=== PATIENT | female | born 1970 | race Caucasian/White ===

== ENCOUNTER 2017-09-29 12:06 | Emergency (ER) | payer BC, OTHER ==
[~2017-09-29] VITALS: Ht 154.9 cm; Wt 64.7 kg
[2017-09-29 12:07] VITALS: TEMP 37; Ht 154.9 cm; Wt 64.7 kg
[2017-09-29] MEDS ORDERED: AMOX250C3 PO (12:38)
[2017-09-29] MEDS ORDERED: CALC-51 PO (12:38)
[2017-09-29] MEDS ORDERED: MULT1TAB22 PO (12:38)
[2017-09-29] MEDS ORDERED: LACTATED RINGER'S 1000ML 1,000 ML IV STA ×2 (12:58→14:32)
--- NOTE | 2017-09-29 13:07 | EMERGENCY ROOM VISIT NOTE ---
History Report prepared by Nehal: Leticia Gray Under the Supervision of: Dr. Jorgito Rehman M.D. First contact with patient: 12:42 Chief Complaint: RECTAL BLEEDING Stated Complaint: WHEN HAVING BM THERE ARE BLOOD/BLOOD CLOTS History of Present Illness The patient is a 46 year old white female with no past medical history who presents to the ED with a cc of intermittent rectal bleeding beginning Thursday. Positive cough. Negative urinary symptoms, fever, chills. The patient states that on Thursday she was started on antibiotics for her recent cold by her PCP. She states that on Thursday morning she noticed what she thought to be blood in her stool, but attributed the color to the popsicles she had. The patient states that the color of her stool resolved, but states that today it has worsened. She states that she had three bowel movements today, noting that the first was dark in color, the second she noticed red blood clots, and the third made the toilet water red. The patient denies being on any anticoagulants. She denies any recent travel, or trauma. The patient denies any alcohol or tobacco use. Source of History: patient Onset: Thursday Position: other (rectal) Quality: other (bleeding) Timing: intermittent Associated Symptoms: + cough, No fevers, No chills, No urinary symptoms Note: Associated Symptoms: dark blood, passing blood clots Review of Systems See HPI for pertinent positives and negatives. A total of ten systems were reviewed and were otherwise negative. Past Medical & Surgical Medical Problems: (1) Asthma (2) Bronchitis (3) Kidney stones Surgical Problems: (1) Status post endometrial ablation Family History Alzheimer's disease Cancer Diabetes mellitus Heart disease Hypertension Social History Smoking Status: Never Smoker Smokeless Tobacco Use: No Alcohol Use: none Marital Status: Housing Status: lives with family Occupation Status: unemployed Current/Historical Medications Scheduled Amoxicillin (Amoxil), Unknown Dose PO BID Calcium Carbonate-Vitamin D (Calcium), 1 TAB PO DAILY Multiple Vitamins W/ Minerals (One Daily For Women), 1 TAB PO DAILY Allergies Coded Allergies: No Known Allergies (Unverified , 09/29/17) Physical Exam Vital Signs Date Time Temp Pulse Resp B/P (MAP) Pulse Ox O2 Delivery O2 Flow Rate FiO2 09/29/17 15:38 96 20 130/86 99 09/29/17 14:33 113 18 133/79 95 Room Air 09/29/17 12:07 37.0 128 20 137/90 99 Room Air Physical Exam GENERAL: Awake, alert, well-appearing, NAD HENT: Normocephalic, atraumatic. EYES: Normal conjunctiva. Sclera non-icteric. NECK: Supple. No nuchal rigidity. FROM. RESPIRATORY: CTAB, no rhonchi, wheezing, crackles CARDIAC: Tachycardic rate, regular rhythm, no MRG ABDOMEN: Soft, NTND, BS+ MSK: No chest wall TTP, no LE edema NEURO: GCS 15, CN 2-12 intact, moves all 4s on command SKIN: No rash or jaundice noted. Medical Decision & Procedures ER Provider Diagnostic Interpretation: X-ray: Per my interpretation, radiologist review. CHEST ONE VIEW PORTABLE CLINICAL HISTORY: Pain, radiating to the abdomen. COMPARISON STUDY: No previous studies for comparison. FINDINGS: The cardiac and mediastinal contours are normal. There is no evidence of focal pulmonary consolidation. There is no evidence of failure. No pleural effusions are visualized.[ No free intraperitoneal air is visualized. IMPRESSION: No active disease in the chest. Electronically signed by: Tuan Stweart M.D. 09/29/2017 1:27 PM Dictated Date/Time: 09/29/2017 1:27 PM Laboratory Results 09/29/17 13:12 Red Blood Count 3.89, Mean Corpuscular Volume 92.0, Mean Corpuscular Hemoglobin 30.8, Mean Corpuscular Hemoglobin Concent 33.5, Mean Platelet Volume 9.9, Neutrophils (%) (Auto) 80.3, Lymphocytes (%) (Auto) 13.8, Monocytes (%) (Auto) 4.7, Eosinophils (%) (Auto) 0.6, Basophils (%) (Auto) 0.2, Neutrophils # (Auto) 12.99, Lymphocytes # (Auto) 2.23, Monocytes # (Auto) 0.76, Eosinophils # (Auto) 0.09, Basophils # (Auto) 0.03 09/29/17 13:12 Test 09/29/17 13:05 09/29/17 13:12 Urine Color YELLOW Urine Appearance CLEAR (CLEAR) Urine pH 7.0 (4.5-7.5) Urine Specific [place] 1.010 (1.000-1.030) Urine Protein NEG (NEG) Urine Glucose (UA) NEG (NEG) Urine Ketones 1+ (NEG) Urine Occult Blood NEG (NEG) Urine Nitrite NEG (NEG) Urine Bilirubin NEG (NEG) Urine Urobilinogen NEG (NEG) Urine Leukocyte Esterase NEG (NEG) White Blood Count 16.17 K/uL (4.8-10.8) Red Blood Count 3.89 M/uL (4.2-5.4) Hemoglobin 12.0 g/dL (12.0-16.0) Hematocrit 35.8 % (37-47) Mean Corpuscular Volume 92.0 fL (80-100) Mean Corpuscular Hemoglobin 30.8 pg (25-34) Mean Corpuscular Hemoglobin Concent 33.5 g/dl (32-36) Platelet Count 387 K/uL (130-400) Mean Platelet Volume 9.9 fL (7.4-10.4) Neutrophils (%) (Auto) 80.3 % Lymphocytes (%) (Auto) 13.8 % Monocytes (%) (Auto) 4.7 % Eosinophils (%) (Auto) 0.6 % Basophils (%) (Auto) 0.2 % Neutrophils # (Auto) 12.99 K/uL (1.4-6.5) Lymphocytes # (Auto) 2.23 K/uL (1.2-3.4) Monocytes # (Auto) 0.76 K/uL (0.11-0.59) Eosinophils # (Auto) 0.09 K/uL (0-0.5) Basophils # (Auto) 0.03 K/uL (0-0.2) RDW Standard Deviation 43.2 fL (36.4-46.3) RDW Coefficient of Variation 12.8 % (11.5-14.5) Immature Granulocyte % (Auto) 0.4 % Immature Granulocyte # (Auto) 0.07 K/uL (0.00-0.02) Prothrombin Time 10.8 SECONDS (9.0-12.0) Prothromb Time International Ratio 1.0 (0.9-1.1) Activated Partial Thromboplast Time 31.5 SECONDS (21.0-31.0) Partial Thromboplastin Ratio 1.2 Anion Gap 11.0 mmol/L (3-11) Est Creatinine Clear Calc Drug Dose 80.7 ml/min Estimated GFR () 110.8 Estimated GFR (Non- 95.6 BUN/Creatinine Ratio 11.6 (10-20) Calcium Level 9.4 mg/dl (8.5-10.1) Total Bilirubin 0.3 mg/dl (0.2-1) Direct Bilirubin < 0.1 mg/dl (0-0.2) Aspartate Amino Transf (AST/SGOT) 20 U/L (15-37) Alanine Aminotransferase (ALT/SGPT) 65 U/L (12-78) Alkaline Phosphatase 159 U/L (45-117) Total Protein 9.0 gm/dl (6.4-8.2) Albumin 3.5 gm/dl (3.4-5.0) Lipase 138 U/L (73-393) Laboratory results reviewed by me Medications Administered Medications (Trade) Dose Ordered Sig/Klarissa Route Start Time Stop Time Status Last Admin Dose Admin Lactated Ringer's 1,000 ml @ 999 mls/hr Q1H1M STAT IV 09/29/17 12:58 09/29/17 13:58 DC 09/29/17 13:20 999 MLS/HR Lactated Ringer's 1,000 ml @ 999 mls/hr Q1H1M STAT IV 09/29/17 14:32 09/29/17 15:32 DC 09/29/17 14:39 999 MLS/HR ECG Indication: tachycardia Rate (beats per minute): 116 Rhythm: sinus tachycardia Findings: no ectopy, other (normal intervals, normal axis, no STS or TWI) ED Course 1251: The patient was evaluated in room A9B. A complete history and physical exam was performed. 1258: Ordered Lactated Ringer's 1000 ml @ 999 mls/hr IV. 1432: Ordered Lactated Ringer's 1000 ml @ 999 mls/hr IV. Medical Decision Triage Nursing notes reviewed. The patient's presentation and history were concerning for coagulopathy, GI bleed, hemorrhoids, IBD, ABM. The patient is a 46 year old white female with no past medical history who presents to the ED with a cc of intermittent rectal bleeding beginning Thursday. Patient was seen and evaluated the bedside. Patient did recently start amoxicillin on Thursday for some URI type symptoms. Patient started experiencing some of the blood in her stool on Thursday. Patient states that this went away but then returned Thursday. Patient does not take any blood thinning medications. She has no history of liver kidney dysfunction. Patient is fairly well-appearing. Patient does have some mild tachycardia. Patient's blood work showed that she had fairly normal blood counts. She had normal hemoglobin and platelets. Patient had normal coags. Patient did have some bright red blood per rectum on rectal exam. Patient heart rate improved with 2 L of fluids. Upon reassessment of the patient the patient was looking and feeling very well. I believe that her tachycardia was more likely related to her URI infectious symptoms as her tachycardia resolved with fluids. The more common the patient has fairly normal blood counts. She has no prior history of disease and is a very well-appearing and healthy relatively young female. Given this I did ask the counseling case manager did ask her to make an appointment with the warehouse associate driver. Patient was told that she has persistent blood in her bowel movements she should return either to the emergency department or at least follow-up with the warehouse associate driver. Patient was told to avoid things like alcohol and caffeine. Patient states she does take a lot of caffeinated beverages should avoid those and practice liberal hydration. I did discuss the amoxicillin use with the pharmacist. There were 2 case reports of some colitis related to the amoxicillin. Given that the patient's URI-type symptoms were not tested and she had no positive strep test and these were just use for symptomatic reason she was told to stop taking the amoxicillin. I discussed the management and plan with the patient. Patient is amenable to outpatient follow-up and treatment with strict return precautions. Patient was given strict follow-up, discharge, and return precautions. All questions were answered. Patient was deemed suitable for outpatient follow-up at this time. Patient agreed with the plan of care and was safely discharged home. Medication Reconcilliation Current Medication List: was personally reviewed by me Impression Primary Impression: Rectal bleeding Additional Impressions: URI (upper respiratory infection) Dehydration Scribe Attestation The scribe's documentation has been prepared under my direction and personally reviewed by me in its entirety. I confirm that the note above accurately reflects all work, treatment, procedures, and medical decision making performed by me. Departure Information Dispostion Home / Self-Care Referrals Jennifer Vallejo M.D. (PCP) Patient Instructions Bleeding Rectal, Dehydration, ED Upper Resp Infec No Abx Tx, My [facility] Additional Instructions Please return to the emergency department if you have worsening or recurrent symptoms not amenable to at-home treatment. Please call for a follow-up appointment with her primary care physician. Please take your medications as prescribed. If you have other concerns and/or complaints please feel free to also call your primary care physician's office or return the ED for further evaluation, management, and treatment. Maintain liberal hydration. Avoid alcohol or caffeine. Please follow up with your PCP by the end of the week. If you are lightheaded, have a rapid heart rate , pass out, have worsening rectal bleeding or persistent rectal bleeding please call your PCP and/or return to the EC. Please stop taking your amoxicillin. Try over the counter remedies for your congestion. You may take 600 mg Ibuprofen every 6 hours as needed for pain with food for no more than 2 consecutive days. You may take tylenol 1000 mg every 6 hours as needed for pain. You may take motrin and tylenol separately or at the same time. Take your medications as prescribed. If taking an antibiotic consider taking a probiotic and/or eating yogurt, but at the least, please take with food as it can cause upset stomach. If culture results are not available at discharge, if they are positive for concern of infection, you will be informed of the results as soon as they are available. If you were seen between 11pm and 7AM all radiology reads will be re-read by our in house staff. If any major discrepancies are discovered, you will be notified. You have been examined and treated today on an emergency basis only. This is not a substitute for, or an effort to provide, complete comprehensive medical care. It is impossible to recognize and treat all injuries or illnesses in a single emergency department visit. It is therefore important that you follow up closely with [facility], your PCP, and/or your specialist(s). Call as soon as possible for an appointment. Thank you for your time and consideration. I look forward to speaking with you again soon. Please don't hesitate to call us if you have any questions. Problem Qualifiers Additional Impressions: URI (upper respiratory infection) URI type: unspecified URI Qualified Codes: J06.9 - Acute upper respiratory infection, unspecified
[2017-09-29 13:27] LABS: BASO % 0.2 %; BASO ABS # 0.03 K/uL (0-0.2); COMPLETE YES; EOS % 0.6 %; HEMATOCRIT 35.8 % (37-47); IG% 0.4 %; LYMPH % 13.8 %; LYMPH ABS # 2.23 K/uL (1.2-3.4); MEAN CORPUSCULAR HEMOGLOBIN 30.8 pg (25-34); MEAN CORPUSCULAR HGB CONC 33.5 g/dl (32-36); MEAN PLATELET VOLUME 9.9 fL (7.4-10.4); MONO % 4.7 %; NEUT % 80.3 %; PLATELET COUNT 387 K/uL (130-400); RED BLOOD COUNT 3.89 M/uL (4.2-5.4); WHITE BLOOD COUNT 16.17 K/uL (4.8-10.8)
[2017-09-29 13:27] LABS: URINE APPEARANCE CLEAR (CLEAR); URINE BILIRUBIN NEG (NEG); URINE COLOR YELLOW; URINE NITRITE NEG (NEG); UROBILINOGEN NEG (NEG); ZZUR CULT IF INDIC CLEAN CATCH NO
--- NOTE | 2017-09-29 13:29 | DIAGNOSTIC IMAGING REPORT ---
CHEST ONE VIEW PORTABLE CLINICAL HISTORY: Pain, radiating to the abdomen. COMPARISON STUDY: No previous studies for comparison. FINDINGS: The cardiac and mediastinal contours are normal. There is no evidence of focal pulmonary consolidation. There is no evidence of failure. No pleural effusions are visualized.[ No free intraperitoneal air is visualized. IMPRESSION: No active disease in the chest. Electronically signed by: Tuan Stewart M.D. 09/29/2017 1:27 PM Dictated Date/Time: 09/29/2017 1:27 PM
[2017-09-29 13:33] LABS: MANUAL MICROSCOPIC REQUIRED? NO; REVIEW REQ? NO
[2017-09-29 13:36] LABS: PARTIAL THROMBOPLASTIN RATIO 1.2; PROTHROMBIN TIME (PATIENT) 10.8 SECONDS (9.0-12.0)
[2017-09-29 13:47] LABS: ALT/SGPT 65 U/L (12-78); AST/SGOT 20 U/L (15-37); BLOOD UREA NITROGEN 9 mg/dl (7-18); BUN/CREATININE RATIO 11.6 (10-20); CALCIUM 9.4 mg/dl (8.5-10.1); CARBON DIOXIDE 24 mmol/L (21-32); CHLORIDE 103 mmol/L (98-107); CREATININE 0.75 mg/dl (0.60-1.20); GLUCOSE 110 mg/dl (70-99); POTASSIUM 3.2 mmol/L (3.5-5.1); SODIUM 138 mmol/L (136-145)
[2017-09-29 13:49] LABS: ALKALINE PHOSPHATASE 159 U/L (45-117)
[2017-09-29 15:38] VITALS: BP 130/86; PULSE 96; O2SAT 99
== END 2017-09-29 16:00 | disposition home or self-care (01) ==
LOC: C.EDB 12:07 → C.EDA 16:00
DX: K62.5 Hemorrhage of anus and rectum (principal); E86.0 Dehydration; J06.9 Acute upper respiratory infection, unspecified; J45.909 Unspecified asthma, uncomplicated; Z87.442 Personal history of urinary calculi; Z98.890 Other specified postprocedural states; Z80.9 Family history of malignant neoplasm, unspecified; Z83.3 Family history of diabetes mellitus; Z82.49 Family history of ischemic heart disease and other diseases of the circulatory system; Z84.89 Family history of other specified conditions

== ENCOUNTER → 2017-11-03 | Outpatient (CLI) | payer BC ==
[~2017-11-03] MED LIST: AMOX250C3 PO; CALC-51 PO; MULT1TAB22 PO; OPTIRAY 320 IV PRN
--- NOTE | 2017-11-03 14:47 | DIAGNOSTIC IMAGING REPORT ---
ABD/PELVIS IV AND ORAL CONT CLINICAL HISTORY: 47 years-old Female presenting with ABNORMAL APPENDIX ON COLONOSCOPY. TECHNIQUE: Multidetector CT of the abdomen and pelvis was performed after the administration of oral and intravenous contrast. IV contrast: 93 mL of Optiray 320. A dose lowering technique was used consistent with the principles of ALARA (as low as reasonably achievable). COMPARISON: None. CT DOSE (mGy.cm): The estimated cumulative dose is 449.14 mGycm. FINDINGS: Digital Account Coordinator topogram: Unremarkable. Lung bases: Lung bases clear. Normal heart size. No pericardial or pleural effusion. Liver: Normal morphology. 2 hypodensities noted in the lateral left hepatic lobe, indeterminate but likely hepatic cysts or hamartomas. Similar smaller hypodensity noted in the medial left hepatic lobe. Patent hepatic vasculature. Biliary: No intrahepatic or extrahepatic biliary ductal dilatation. Normal gallbladder. Pancreas: Focal ovoid 5 mm hypodensity in the uncinate process of the pancreas either focal duct of [place] dilatation or small side branch intraductal patent or mucinous neoplasm or mucinous cyst. No main pancreatic ductal dilatation. Spleen: Normal. Splenule noted. Adrenal glands: Normal. Kidneys and ureters: Normal. No hydronephrosis. Bladder: Normal. Pelvic organs: Uterus and ovaries normal. Bowel: Few diverticula noted at the splenic flexure and hepatic flexure. Oral contrast has transited to the cecum. The base of the appendix is dilated measuring 1.6 cm in diameter (series 3 image 241). The remainder of the appendix is prominent though less severely dilated. The lumen of the appendix appears to contain soft tissue density or inspissated material. No periappendiceal fat stranding. No bowel obstruction. Peritoneal cavity: No free fluid or intraperitoneal gas. Lymph nodes: No enlarged lymph nodes in the abdomen or pelvis. Vasculature: Aorta and IVC patent and normal in caliber. Abdominal wall: Normal. Musculoskeletal: Normal. IMPRESSION: 1. Abnormal appearance of the appendix, which is dilated and contains soft tissue density. No periappendiceal inflammatory change. This is felt unlikely to represent acute appendicitis. The primary diagnostic concern is that an underlying lesion is present, either lymphoid hyperplasia or a solid neoplasm such as carcinoid. No low density fluid material within the lumen is to suggest a mucocele. Nonurgent surgical consultation is recommended. Electronically signed by: Jay Tao M.D. 11/03/2017 2:46 PM Dictated Date/Time: 11/03/2017 2:36 PM
== END | disposition home or self-care (01) ==
LOC: C.CTS 14:08
PROVIDERS: ATTEND Internal Medicine Gastroenterology
DX: K38.8 Other specified diseases of appendix (principal)

== ENCOUNTER 2017-12-03 05:10 | Day surgery (SDC) | payer BC, OTHER ==
[2017-11-17 09:59] VITALS: BMI 27.0
[~2017-12-03] VITALS: Ht 154.9 cm; Wt 65.9 kg
[~2017-12-03 05:10] MED LIST changes: -AMOX250C3 PO; -OPTIRAY 320 IV PRN
[2017-12-03 05:37] VITALS: BP 123/77; PULSE 99; TEMP 36.7; O2SAT 100; Ht 154.9 cm; Wt 65.9 kg
[2017-12-03] MEDS ORDERED: IBUP-1450 PO (05:37)
[2017-12-03 05:50] LABS: HEMATOCRIT 38.7 % (37-47); HEMOGLOBIN 12.2 g/dL (12.0-16.0); MEAN CORPUSCULAR HEMOGLOBIN 27.1 pg (25-34); MEAN PLATELET VOLUME 10.7 fL (7.4-10.4); PLATELET COUNT 310 K/uL (130-400); RED CELL DISTRIBUTION WIDTH CV 14.6 % (11.5-14.5); RED CELL DISTRIBUTION WIDTH SD 46.3 fL (36.4-46.3); WHITE BLOOD COUNT 6.98 K/uL (4.8-10.8)
[2017-12-03] MEDS ORDERED: CEFAZOLIN 2000MG IV PUSH 10 ML IV SCH (06:00)
[2017-12-03] MEDS ORDERED: LACTATED RINGER'S 1000ML 1,000 ML IV SCH ×2 (06:00)
[2017-12-03 06:24] LABS: MEAN CORPUSCULAR HGB CONC 31.5 g/dl (32-36)
--- NOTE | 2017-12-03 06:38 | History & Physical Bridge Note ---
H&P Re-Evaluation Bridge Note: I have examined the patient, reviewed the History & Physical and in the interval since the performance of the History & Physical I have noted the following changes of clinical significance: No changes noted
[2017-12-03] MEDS ORDERED: ONDANSETRON INJ 2 MG/ML 2 ML VIAL ONE (06:49)
[2017-12-03] MEDS ORDERED: FENTANYL CITRATE INJ 50 MCG/1 ML 2 ML VIAL ONE (06:49)
[2017-12-03] MEDS ORDERED: DEXAMETHASONE SOD INJ 4 MG/ML VIAL ONE (06:49)
[2017-12-03] MEDS ORDERED: GLYCOPYRROLATE INJ 0.2 MG/ML VIAL ONE (06:49)
[2017-12-03] MEDS ORDERED: NEOSTIGMINE METHYLSULFATE 5 MG/5 ML SYR ONE (06:49)
[2017-12-03] MEDS ORDERED: LARYING-O-JET KIT (LTA) ONE (06:49)
[2017-12-03] MEDS ORDERED: MIDAZOLAM HCL 1 MG/ML 2ML VIAL ONE (06:49)
[2017-12-03] MEDS ORDERED: LIDOCAINE HCL 2% 2 ML VIAL (20MG/ML) ONE (06:49)
[2017-12-03] MEDS ORDERED: PROPOFOL IV EMULSION 10 MG/ML 20 ML VIAL IV ONE (06:49)
[2017-12-03] MEDS ORDERED: KETOROLAC TROMETHAMINE 30 MG/ML VIAL ONE (06:49)
[2017-12-03] MEDS ORDERED: ROCURONIUM BROMIDE 10 MG/ML 5 ML VIAL IV ONE (06:49)
[2017-12-03] MEDS ORDERED: BUPIVACAINE 0.5 % 5 MG/1 ML MPF 30ML VIAL ONE (07:03)
[2017-12-03] MEDS ORDERED: EpINEphrine INJ 1MG/ML AMP 1 MG/ML AMP ONE (07:03)
[2017-12-03] MEDS ORDERED: ATROPINE SULFATE 0.1 MG/ML 5ML SYR IV PRN (07:15)
[2017-12-03] MEDS ORDERED: ONDANSETRON INJ 2 MG/ML 2 ML VIAL IV PRN ×2 (07:15→08:45)
[2017-12-03] MEDS ORDERED: HYDROmorphone INJ 1 MG/ML SYR IV PRN (07:15)
[2017-12-03] MEDS ORDERED: EpHEDrine SULFATE INJ 50 MG/ML AMP IV PRN (07:15)
--- NOTE | 2017-12-03 08:22 | [facility] Post Operative Brief Note ---
Immediate Operative Summary Operative Date Dec 03, 2017. Pre-Operative Diagnosis Appendiceal mass Post-Operative Diagnosis same as preop Procedure(s) Performed Laparoscopic appendectomy and partial cecectomy Surgeon Dr. Alfaro [employer] Director School Surgeon(s) Ghazal Bauer PA-C Estimated Blood Loss 5 cc Findings small mass at base of appendix, otherwise normal anatomy Specimens A: appendix and portion of cecum Anesthesia get Complication(s) None Disposition Recovery Room / PACU
[2017-12-03] MEDS ORDERED: SODIUM CHLORIDE 0.9% 1000ML 1,000 ML IV SCH (08:38)
[2017-12-03] MEDS ORDERED: HYDR-5688 PO ×2 (08:40→08:42)
[2017-12-03] MEDS ORDERED: HYDROCODONE/ACETAMOPHEN 5/325MG TAB PO PRN ×2 (08:45)
--- NOTE | 2017-12-03 08:48 | Discharge Instructions ---
Discharge Instructions Date of Service Dec 03, 2017. Admission Reason for Admission: Abnormal Appendix Discharge Discharge Diagnosis / Problem: Abnormal Appendix Discharge Goals Goal(s): Decrease discomfort, Improve function Activity Recommendations Activity Limitations: as noted below Lifting Limitations: no more than 10 pounds Exercise/Sports Limitations: until after follow-up appointment May Resume Sexual Activity: after follow-up appointment Shower/Bathe: tomorrow Driving or Machine Use: resume 1 day after discharge . Instructions / Follow-Up Instructions / Follow-Up Please follow-up with Dr. Alfaro [facility] in 1-2 weeks. Please call the office at [phone] to make an appointment if you do not have one already. Please call the office with any questions or concerns. Current Hospital Diet Patient's current hospital diet: Discharge Diet Recommended Diet: Regular Diet Procedures Procedures Performed: Laparoscopic appendectomy and partial cecectomy Pending Studies Studies pending at discharge: yes List of pending studies: Pathology report. Medical Emergencies . Who to Call and When: Medical Emergencies: If at any time you feel your situation is an emergency, please call 911 immediately. . Non-Emergent Contact Non-Emergency issues call your: Primary Care Provider, Surgeon Call Non-Emergent contact if: temperature is above 101.5, your pain is not controlled, wound has increased drainage, wound has increased redness . "Provider Documentation" section prepared by Michelle Bauer. . VTE Core Measure Inpt VTE Proph given/why not?: SCD's [place] Drug Monitoring Program Search Results: patient reviewed within database, no issues identified
--- NOTE | 2017-12-03 08:49 | [facility] Operative Report ---
Operative Report Operative Date Dec 03, 2017. Pre-Operative Diagnosis Appendiceal mass Post-Operative Diagnosis same as preop Procedure(s) Performed Laparoscopic appendectomy and partial cecectomy Surgeon Dr. Alfaro Practice Director Surgeon(s) Ghazal Bauer PA-C Estimated Blood Loss 5 cc Findings small mass at base of appendix, otherwise normal anatomy Specimens A: appendix and portion of cecum Anesthesia get Complication(s) None Disposition Recovery Room / PACU Description of Procedure After informed consent was obtained the patient was taken to the operating room placed in supine position. After successful intubation the left arm was tucked and a Owen catheter was placed. The abdomen was then sterilely prepped and draped in usual fashion. A periumbilical incision was made with 11 blade scalpel and carried down through the soft tissue using electrocautery. The anterior rectus fascia was opened using electrocautery and 2 #0 Vicryl stay sutures were placed. Peritoneum was elevated with hemostats and incised under direct vision using a Metzenbaum scissor. A finger sweep was performed. A 12 mm Osorio trocar was placed and the abdomen was insufflated 18 mmHg. The scope was inserted and the abdomen examined 360. A suprapubic 5 mm port and a left lower quadrant 12 mm port were all placed under direct vision. Began by examining the right lower quadrant. The appendix itself appeared normal however back at its base with the cecum there was a intraluminal mass type effect that was rather firm. Cecum itself looked normal. There is no disruption of the serosa. There was no mucus anywhere in the abdomen. We ran the terminal ileum backwards for probably 10 feet all of which was normal. Uterus and other pelvic organs were all normal. Large bowel stomach liver gallbladder etc. were all normal as well. We then mobilized the cecum. I used a XIN Brown cartridge stapler to transect the mesentery of the appendix. I then used a second firing of a XIN to transect the cecum which contained the base of the appendix. I tried to get a reasonable margin from the palpable abnormality. Once we had this transected we placed it into an Endo Catch bag and removed it. There was adequate hemostasis and the staple line was intact. We irrigated and looked around a final time and saw no other gross abnormalities. The trochars were all removed and the abdomen was desufflated. The fascia of the camera port as well as left lower quadrant port were closed using 0 Vicryl in [id number] fashion. Wounds were irrigated and closed with 4-0 Monocryl. Marcaine was injected around for postoperative analgesia and skin glue used as a dressing. The patient was awaken extubated and transferred recovery in stable condition My physician's clinical nursing assistant was present through the entire case. She helped prepped the patient as well as exposed for port placement. She ran the camera during my dissection and also helped with wound closure I attest to the content of the Intraoperative Record and any orders documented therein. Any exceptions are noted below.
[2017-12-03] MEDS: FENTANYL CITRATE INJ 50 MCG/1 ML 2 ML VIAL IV PRN ×2 (08:54→09:00)
--- NOTE | 2017-12-03 09:10 | Anesthesiology Progress Note ---
Anesthesia Post Op Note Date & Time Dec 03, 2017 at 09:10 Vital Signs Pain Intensity: 4 Vital Signs Past 12 Hours Date Time Temp Pulse Resp B/P (MAP) Pulse Ox O2 Delivery O2 Flow Rate FiO2 12/03/17 09:05 36.6 74 16 117/72 96 Room Air 12/03/17 08:55 73 16 111/70 97 Room Air 12/03/17 08:45 79 16 117/77 100 Oxymask 3 12/03/17 08:38 36.7 99 16 123/73 100 Oxymask 5 12/03/17 05:37 36.7 99 16 123/77 (92) 100 Room Air Notes Mental Status: alert / awake / arousable, participated in evaluation Pt Amnestic to Procedure: Yes Nausea / Vomiting: adequately controlled, improving with treatment Pain: adequately controlled Airway Patency, RR, SpO2: stable & adequate BP & HR: stable & adequate Hydration State: stable & adequate Anesthetic Complications: no major complications apparent
[2017-12-03 09:50] VITALS: BP 117/74; PULSE 88; TEMP 36.4; O2SAT 96
== END 2017-12-03 10:45 | disposition home or self-care (01) ==
LOC: C.ACU 05:10
PROVIDERS: ATTEND Surgery
DX: K35.3 Acute appendicitis with localized peritonitis (principal); J45.909 Unspecified asthma, uncomplicated; K21.9 Gastro-esophageal reflux disease without esophagitis; Z80.3 Family history of malignant neoplasm of breast; Z82.49 Family history of ischemic heart disease and other diseases of the circulatory system